=== PATIENT | female | born 1950 | race Caucasian/White ===

== ENCOUNTER → 2016-10-28 | Outpatient (CLI) | payer BC ==
--- NOTE | 2016-10-28 10:12 | KCIC ---
EXAM Bilateral digital screening mammogram. HISTORY 65-year-old female presents for screening mammography. TECHNIQUE Full field digital craniocaudal and mediolateral oblique views of both breasts were obtained. Computer-aided detection is applied. COMPARISON 11/11/2014 FINDINGS Breast parenchymal composition: Level B - Scattered fibroglandular densities. There is no new suspicious mass, calcification or architectural distortion within either breast. IMPRESSION BI-RADS Category 2: Benign findings. Annual mammography is recommended. This study was interpreted with the benefit of Computerized Aided Detection (CAD). Mammography is not 100% sensitive in detecting breast cancer. Therefore, a self breast exam and a clinical breast exam are very important. A negative mammogram does not negate a clinically suspicious finding and should not result in a delay in biopsying a clinically suspicious abnormality. The patient information was entered into a reminder system with a target date for her next mammogram in year. Electronically signed by: Angela Davila (October 28, 2016 10:10:46)
--- NOTE | 2016-10-28 10:18 | KCIC ---
ABDOMINAL ULTRASOUND, 10/28/2016: History: Right upper quadrant pain The gallbladder is within normal limits in size. There is no sonographic evidence of cholelithiasis. The gallbladder wall is not thickened. No bile duct dilatation is seen. The visualized portions of the liver, pancreas, spleen and both kidneys are unremarkable. The abdominal aorta is of normal caliber. The inferior vena cava is unremarkable. No free fluid is evident in the abdomen. IMPRESSION: No significant abnormality is detected. Electronically signed by: Baron Espinal MD (October 28, 2016 10:17:52)
== END | disposition home or self-care (01) ==
LOC: KCIC US 08:58
PROVIDERS: ATTEND Family Medicine
DX: Z12.31 Encounter for screening mammogram for malignant neoplasm of breast (principal); R10.11 Right upper quadrant pain
CPT/HCPCS: 76700; G0202; 77067

== ENCOUNTER → 2017-06-12 | Outpatient (CLI) | payer BC ==
--- NOTE | 2017-06-12 14:56 | KCIC ---
Indication: Wheezing. Time of exam 2:22 PM No prior studies are available for comparison. FINDINGS: The heart size is normal. The lungs are clear. No pleural effusion or pneumothorax is identified. The pulmonary vascularity is normal. IMPRESSION: No acute abnormality detected. Electronically signed by: Syed Willett MD (06/12/2017 2:53 PM) [id number]
== END | disposition home or self-care (01) ==
LOC: KCIC 14:15
PROVIDERS: ATTEND Nurse Practitioner Family
DX: R06.2 Wheezing (principal)
CPT/HCPCS: 71020

== ENCOUNTER → 2017-11-06 | Outpatient (CLI) | payer BC | END | disposition home or self-care (01) | LOC: KCIC 15:20 | DX: M51.36 Other intervertebral disc degeneration, lumbar region (principal) | CPT/HCPCS: 72100 ==

== ENCOUNTER → 2017-12-01 | Outpatient (CLI) | payer BC | END | disposition home or self-care (01) | LOC: KCIC US 08:13 | DX: R16.0 Hepatomegaly, not elsewhere classified (principal) | CPT/HCPCS: 76700 ==

== ENCOUNTER → 2017-12-01 | Outpatient (CLI) | payer BC | END | disposition home or self-care (01) | LOC: KCIC MAMMO 09:04 | DX: Z12.31 Encounter for screening mammogram for malignant neoplasm of breast (principal) | CPT/HCPCS: 77067 ==

== ENCOUNTER → 2018-12-20 | Outpatient (CLI) | payer BC ==
--- NOTE | 2018-12-20 15:25 | KCIC ---
Bilateral digital screening mammograms with 3-D tomosynthesis: Reason for examination: Routine screening. Comparison is made to previous studies dated 12/01/2017 and 10/28/2016 Bilateral mammograms in CC and oblique projections were obtained with 2-D imaging and 3-D tomosynthesis imaging on a Siemens Inspiration unit and reviewed on the workstation. Interpretation was made with the benefit of CAD. The skin and nipples show no abnormalities. No abnormal axillary lymph nodes are seen. The breast parenchyma shows scattered fatty and fibroglandular density. (Breast density: Category B.) There is a new nodular parenchymal density at the 1:00 B position of the left breast measuring approximately 5.5 mm in size. Recommend further evaluation with ultrasound. There continue to be additional small parenchymal densities bilaterally which are stable. There are no other new dominant masses, suspicious calcifications or architectural distortion. Impression: New 5.5 mm nodule in the 1:00 B position of the left breast approximately 9 cm from the nipple. Recommend further evaluation with ultrasound. BI-RAD Category 0: Incomplete. Needs additional imaging evaluation. "Our facility is accredited by the [employer] Mammography Program." This patient's information has been entered into a reminder system for the patient to be notified with the results of her examination and a target date for the next mammogram. Electronically signed by: Jimena Agosto MD (12/20/2018 3:22 PM) [id number]
== END | disposition home or self-care (01) ==
LOC: KCIC MAMMO 14:13
PROVIDERS: ATTEND Family Medicine
DX: Z12.31 Encounter for screening mammogram for malignant neoplasm of breast (principal); N63.21 Unspecified lump in the left breast, upper outer quadrant
CPT/HCPCS: 77063; 77067

== ENCOUNTER → 2018-12-31 | Outpatient (CLI) | payer BC ==
--- NOTE | 2018-12-31 10:22 | KCIC ---
Left breast ultrasound: Reason for examination: Nodule on screening mammogram. Comparison is made to mammographic exam dated 12/20/2018. Ultrasound examination of the left breast and axilla was performed with attention to the area of mammographic concern. At the 1:00 position 5.5 cm from the nipple and appearing to correspond to the area of mammographic concern, there is a hypoechoic circumscribed lesion measuring 5.7 mm in greatest dimension which probably represents a complicated cyst. No other cystic or solid lesions are seen. No abnormal appearing lymph nodes are seen in the axilla. IMPRESSION: Small 5.7 mm circumscribed nodule probably representing a complicated cyst at the 1:00 position appears to correlate with the area of mammographic concern. Recommend reevaluation with ultrasound in 6 months to verify stability of this finding. BI-RADS Category 3: Probably Benign. "Our facility is accredited by the [employer] Mammography [employer]." This patient's information has been entered into a reminder system for the patient to be notified with the results of her examination and a target date for the next mammogram. Electronically signed by: Jimena Agosto MD (12/31/2018 10:19 AM) [id number]
== END | disposition home or self-care (01) ==
LOC: KCIC US 09:27
PROVIDERS: ATTEND Family Medicine
DX: N64.89 Other specified disorders of breast (principal)
CPT/HCPCS: 76641

== ENCOUNTER → 2019-02-14 | Outpatient (CLI) | payer OTHER ==
--- NOTE | 2019-02-14 12:07 | KCIC ---
EXAM: Dual energy x-ray absorptiometry (DEXA). HISTORY: Postmenopausal presents for osteoporosis screening. COMPARISON: . Eye 15/08/2011. TECHNIQUE: Dual energy x-ray absorptiometry of the lumbar spine and left hip was performed. Calculation of bone mineral density based on standard deviations above or below the expected young adult normal value (T-score) was completed. FINDINGS: The average bone mineral density in the 1st through 4th lumbar vertebrae is 1.066 g/cmxcm, corresponding with a T-score of 0.2. There has been a 1.5% decrease in density of the lumbar spine compared to the prior study. The average total bone mineral density in the left hip is 0.946 g/cmxcm, corresponding with a T-score of 0.0. There has been a 0.0% change in bone mineral density of the left hip compared to the prior study. IMPRESSION: Normal bone mineral density. Note: Definitions established by the World Health Organization: 1. Normal: T-score is -1.0 or above. 2. Osteopenia: T-score is between -1.0 and -2.5 . 3. Osteoporosis: T-score is -2.5 or below. Electronically signed by: Angela Davila MD (02/14/2019 12:04 PM) [facility]
== END | disposition home or self-care (01) ==
LOC: KCIC 10:44
PROVIDERS: ATTEND Nurse Practitioner Family
DX: Z13.820 Encounter for screening for osteoporosis (principal); N95.9 Unspecified menopausal and perimenopausal disorder
CPT/HCPCS: 77080

== ENCOUNTER → 2019-02-14 | Outpatient (CLI) | payer OTHER ==
--- NOTE | 2019-02-14 11:24 | KCIC ---
STUDY: MRI of the left knee without contrast INDICATION: Left anteromedial knee pain. No reported injury. COMPARISON: None. TECHNIQUE: Multiplanar MR imaging of the left knee performed without the use of intravenous or intra-articular contrast. 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 Signal changes at the anterior horn/root of the lateral meniscus likely in part related to interdigitation of fibers with the ACL and an anterior intermeniscal ligament The medial meniscus is intact. Cruciate ligaments: Intact ACL and PCL. Collateral ligaments: No acute injury of the medial or lateral collateral ligamentous structures. Tendons: Mild proximal patellar tendinosis. The additional tendons at the knee are unremarkable. Cartilage: Patellofemoral: Patellar chondrosis with areas of chondral thinning and probable full-thickness fissuring with subchondral edema/cystic change at the lateral facet. Extensive high-grade/full-thickness chondrosis with marked subchondral edema/cystic change centered about the trochlear groove. Lateral compartment: No full-thickness defect identified. Medial compartment: Chondral heterogeneity such as seen at the medial aspect of the medial femoral condyle, image 10 series 9. Bones: No acute fracture or suspicious marrow signal abnormality. Miscellaneous: Small knee joint effusion. Small Capellan's cyst. IMPRESSION: 1. 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 Less pronounced chondrosis involving the patella lateral facet as well as the medial compartment, as above. 2. 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 3. Mild proximal patellar tendinosis. 4. Small knee joint effusion and a small Capellan's cyst. Electronically signed by: ROBERT OLEA MD (02/14/2019 11:20 AM) [facility]
== END | disposition home or self-care (01) ==
LOC: KCIC MRI 09:50
PROVIDERS: ATTEND Orthopaedic Surgery
DX: M23.342 Other meniscus derangements, anterior horn of lateral meniscus, left knee (principal); M71.22 Synovial cyst of popliteal space [Baker], left knee; M25.462 Effusion, left knee; Z90.710 Acquired absence of both cervix and uterus
CPT/HCPCS: 73721

== ENCOUNTER → 2019-08-15 | Outpatient (CLI) | payer BC, MEDICARE ==
--- NOTE | 2019-08-15 16:01 | KCIC ---
Left breast ultrasound: Reason for examination: Follow-up nodule. Comparison is made to previous study dated 12/31/2018. Ultrasound examination of the left breast and axilla was performed. There continues to be hypoechoic circumscribed lesion in parallel orientation measuring 4.7 mm in size at the 1:00 position 5 cm from the nipple. This appears to be slightly smaller than on previous exam. No other cystic or solid lesions are seen. No abnormal appearing lymph nodes are seen in the axilla. IMPRESSION: Continued presence of a small 4.7 mm circumscribed nodule at the 1:00 position which shows a slight decrease in size. This has a benign appearance but recommend continued 6 month sonographic follow-up to verify one year stability. This can be performed at the time of bilateral mammograms. BI-RADS Category 3: Probably Benign. "Our facility is accredited by the [employer] Mammography Program." This patient's information has been entered into a reminder system for the patient to be notified with the results of her examination and a target date for the next mammogram. Electronically signed by: Jimena Agosto MD (08/15/2019 3:59 PM) [email or web address]
== END | disposition home or self-care (01) ==
LOC: KCIC US 09:02
PROVIDERS: ATTEND Family Medicine
DX: N63.21 Unspecified lump in the left breast, upper outer quadrant (principal)
CPT/HCPCS: 76641

== ENCOUNTER → 2020-01-02 | Outpatient (CLI) | payer MEDICARE ==
--- NOTE | 2020-01-02 18:17 | KCIC ---
Bilateral diagnostic digital mammograms with 3-D tomosynthesis: Reason for examination: Follow-up nodule. Comparison is made to previous studies dated back to 10/28/2016. Bilateral mammograms in CC and oblique projections were obtained with 2-D imaging and 3-D tomosynthesis imaging on a Siemens Inspiration unit and reviewed on the workstation. Interpretation was made with the benefit of CAD. The skin and nipples show no abnormalities. No abnormal axillary lymph nodes are seen. The breast parenchyma shows scattered fatty and fibroglandular density. (Breast density: Category B.) There appears to be a decrease in size of the nodule at the 1:00 B position of the left breast. There are no new dominant masses, suspicious calcifications or architectural distortion. Impression: Improvement in the appearance of the nodular density at the 1:00 B position of the left breast. Ultrasound to follow. BI-RAD Category 0: Incomplete. Needs additional imaging evaluation. Left breast ultrasound: Comparison is made to previous studies dated 08/15/2019 and 12/31/2018. Ultrasound examination of the left breast was performed in the area of mammographic concern. At the 1:00 position 5 cm from the nipple, there continues to be a small hypoechoic nodule measuring 2.2 mm in greatest dimension which has shown interval decrease in size. There is also a small 3.8 mm hypoechoic fibrocystic nodule at the 4:00 position 6 cm from the nipple. No other cystic or solid nodules are seen. No abnormal appearing lymph nodes are seen in the left axilla. IMPRESSION: Decreased size of the nodule at the 1:00 position. Additional small 3.8 mm hypoechoic fibrocystic type nodule at the 4:00 position. Recommend continued 6 month follow-up with ultrasound. BI-RADS Category 3: Probably Benign. "Our facility is accredited by the [employer] Mammography [employer]." This patient's information has been entered into a reminder system for the patient to be notified with the results of her examination and a target date for the next mammogram. Electronically signed by: Jimena Agosto MD (01/02/2020 6:14 PM) [email or web address]
== END | disposition home or self-care (01) ==
LOC: KCIC MAMMO 08:33
PROVIDERS: ATTEND Nurse Practitioner Family
DX: R92.2 Inconclusive mammogram (principal); N63.21 Unspecified lump in the left breast, upper outer quadrant
CPT/HCPCS: 76641; 77066; G0279; 77062

== ENCOUNTER → 2020-10-15 | Outpatient (CLI) | payer MEDICARE ==
--- NOTE | 2020-10-15 11:54 | KCIC ---
Left breast ultrasound: Reason for examination: Follow-up nodules. Comparison is made to previous studies dated 01/02/2020 and 08/15/2019. Ultrasound examination of the left breast and axilla was performed. At the 1:00 position 5 cm from the nipple, there continues to be a small 3.3 mm hypoechoic nodule whi ch has a fibrocystic appearance and appears to be smaller than on previous exams. At the 4:00 positio n 6 cm from the nipple, there continues to be a small hypoechoic fibrocystic type nodule measuring 4. 1 mm in greatest dimension which is stable. No new cystic or solid lesions are seen. No abnormal appe aring lymph nodes are seen in the left axilla. IMPRESSION: Stable nodules in the left breast at the 1:00 and 4:00 position. Recommend 6 month follow-up ultrasou nd which can be performed at the time of bilateral mammograms. BI-RADS Category 3: Probably Benign. "Our facility is accredited by the [employer] Mammography Program." This patient's information has been entered into a reminder system for the patient to be notified wit h the results of her examination and a target date for the next mammogram. Electronically signed by: Jimena Agosto MD (10/15/2020 11:51 AM) [email or web address]
== END ==
LOC: KCIC US 08:45
PROVIDERS: ATTEND Family Medicine
DX: R92.8 Other abnormal and inconclusive findings on diagnostic imaging of breast (principal); N63.21 Unspecified lump in the left breast, upper outer quadrant
CPT/HCPCS: 76641

== ENCOUNTER → 2021-05-11 | Outpatient (CLI) | payer MEDICARE ==
--- NOTE | 2021-05-11 12:07 | KCIC ---
Bilateral diagnostic digital mammograms with 3-D tomosynthesis: Reason for examination: Follow-up nodules. Comparison is made to previous studies dated back to 11/11/2014. Bilateral mammograms in CC and oblique projections were obtained with 2-D imaging and 3-D tomosynthes is imaging on a Siemens Inspiration unit and reviewed on the workstation. Interpretation was made wit h the benefit of CAD. The skin and nipples show no abnormalities. No abnormal axillary lymph nodes are seen. The breast par enchyma shows scattered fatty and fibroglandular density. (Breast density: Category B.) There are sma ll nodular density seen in the lower inner quadrant of the right breast and in the upper outer quadra nt of the left breast which are stable. There are no new dominant masses, suspicious calcifications o r architectural distortion. Impression: Small nodular asymmetries bilaterally. Ultrasound to follow. BI-RAD Category 0: Incomplete. Needs additional imaging evaluation. Bilateral breast ultrasound: Comparison is made to previous study dated 10/15/2020. Ultrasound examination was performed bilaterally of the breasts and axilla. In the right breast at the 4:30 position 4.5 cm from the nipple, there is a small hypoechoic fibrocys tic type lesion measuring approximately 5.5 mm in greatest dimension. No other cystic or solid nodule s are seen. There is some ductal ectasia in the retroareolar position. No abnormal appearing lymph no asa are seen in the right axilla. In the left breast at the 1:00 position 5 cm from the nipple, there continues to be a small 3.6 mm hy poechoic circumscribed lesion with a fibrocystic appearance which is stable. At the 3:00 position 5 c m from the nipple, there is a small 3.4 mm hypoechoic fibrocystic type lesion. At the 4:00 position 6 cm from the nipple, there is a 3.1 mm hypoechoic fibrocystic type lesion which is stable. No suspici ous-appearing nodules are seen. IMPRESSION: Small fibrocystic type lesions bilaterally. Recommend reevaluation with bilateral ultrasound in 6 mon ths. BI-RADS Category 3: Probably Benign. "Our facility is accredited by the [employer] Mammography Program." This patient's information has been entered into a reminder system for the patient to be notified wit h the results of her examination and a target date for the next mammogram. Electronically signed by: Jimena Agosto MD (05/11/2021 11:59 AM) [email or web address]
== END ==
LOC: KCIC MAMMO 09:42
PROVIDERS: ATTEND Family Medicine
DX: N60.42 Mammary duct ectasia of left breast (principal); N60.41 Mammary duct ectasia of right breast; N63.0 Unspecified lump in unspecified breast
CPT/HCPCS: 76641; 77066; G0279; 77062